=== PATIENT | male | born 1970 | race Caucasian/White ===

== ENCOUNTER 2020-10-23 08:33 | Outpatient (REF) | payer OTHER, SELFPAY ==
[2020-10-23 10:00] LABS: Alanine Aminotransferase 21 U/L (0-40); Anion Gap 14 (12-20); Blood Urea Nitrogen 19 mg/dL (9-16); Carbon Dioxide 24 mmol/L (22-29); Chloride 108 mmol/L (96-108); Cholesterol 179 mg/dL; Estimated Glomerular Filt Rate > 60; HDL Cholesterol 34 mg/dL; LDL Cholesterol Calculated 128 mg/dl; Potassium 4.6 mmol/L (3.3-5.1); Sodium 141 mmol/L (135-145); Triglycerides 86 mg/dL
== END 2020-10-23 08:34 | disposition home or self-care (01) ==
LOC: HO.LAB 08:33
PROVIDERS: PCP Family Medicine; Visit Provider Family Medicine
DX: E78.00 Pure hypercholesterolemia, unspecified (principal); I10 Essential (primary) hypertension; Z79.899 Other long term (current) drug therapy
CPT/HCPCS: 36415; 80051; 80061; 82550; 82565; 84460; 84520

== ENCOUNTER → 2020-12-16 15:26 | Outpatient (BNVA) | payer OTHER, SELFPAY | PROVIDERS: PCP Family Medicine; Visit Provider Surgery ==

== ENCOUNTER 2021-01-05 06:02 | Day surgery (SDC) | payer OTHER, SELFPAY ==
[2020-12-30 11:39] VITALS: BMI 31.1
--- NOTE | 2021-01-04 08:34 | P.CONAN_ITS ---
Documented by User: Sharno Syeda 01/04/21 08:34 HPI - Anesthesia Eval Consult details Narrative: 50yo M for Excision of Back Lipoma PMFSH Active Problems Active Problems: All Active Problems (Updated 12/30/20 @ 11:36 by Deepti Renteria) Lipoma of back (Acute) Past Medical History Medical History GERD (gastroesophageal reflux disease) High cholesterol Lipoma of back Surgical History Surgical History History of back surgery Social History Social History Are you a primary post acute care nurse to a significant other at home: No Do you presently have visiting nurse or other home services: No Alcohol intake: former Patient Tobacco Use Status: Current someday Tobacco user Tobacco use type: Cigarette Years Smoked: 25 Smoked in Last 30 Days: Yes Patient Given Instructions on How to Stop Smoking: Yes Date Education Initiated: 12/30/20 Second Hand Smoke Exposure: Yes () Use of substances other than those prescribed or required for medical reasons: Yes Substance Use Frequency: Daily Have you been hit, kicked, punched, or otherwise hurt by someone within the past year? If so, by whom?: No Are you DNR?: No Advance Directives: No Advance Directives Information Provided: No Advance Directives on File: No Recently lost weight without trying: No Eating poorly because of decreased appetite: No Nutrition Risks: No Nutritional Risk Meds Allergies Allergy/AdvReac Type Severity Reaction Status Date / Time No Known Allergies Allergy Unverified 12/30/20 11:36 [No Known Allergies*] Home Medications Medication Instructions Recorded Confirmed Last Taken Type atorvastatin 20 mg tablet 20 mg PO BEDTIME 12/16/20 12/30/20 Unknown History multivitamin 1 tab PO DAILY 12/16/20 12/30/20 Unknown History cyclobenzaprine 5 mg PO BEDTIME PRN 12/30/20 12/30/20 Unknown History flaxseed oil 1,000 mg PO DAILY 12/30/20 12/30/20 Unknown History lysine [L-Lysine] 1,000 mg PO DAILY 12/30/20 12/30/20 Unknown History omeprazole 20 mg PO DAILY 12/30/20 12/30/20 Unknown History Exam Exam Date and Time: January 04, 2021 0834 Height,Weight and Vital Signs: Height 6 ft Weight 104.326 kg Assessment and Plan Assessment Anesthesia Assessment: Chart Reviewed Documented by User: Susana Magaña 01/05/21 08:00 [facility] Past Medical History Medical History GERD (gastroesophageal reflux disease) High cholesterol Lipoma of back Surgical History Surgical History History of back surgery Social History Social History Are you a primary post acute care nurse to a significant other at home: No Do you presently have visiting nurse or other home services: No Alcohol intake: former Patient Tobacco Use Status: Current someday Tobacco user Tobacco use type: Cigarette Years Smoked: 25 Smoked in Last 30 Days: Yes Patient Given Instructions on How to Stop Smoking: Yes Date Education Initiated: 12/30/20 Second Hand Smoke Exposure: Yes () Use of substances other than those prescribed or required for medical reasons: Yes Substance Use Frequency: Daily Have you been hit, kicked, punched, or otherwise hurt by someone within the past year? If so, by whom?: No Are you DNR?: No Advance Directives: No Advance Directives Information Provided: No Advance Directives on File: No Recently lost weight without trying: No Eating poorly because of decreased appetite: No Nutrition Risks: No Nutritional Risk Meds Allergies Allergy/AdvReac Type Severity Reaction Status Date / Time No Known Allergies Allergy Unverified 12/30/20 11:36 [No Known Allergies*] Home Medications Medication Instructions Recorded Confirmed Last Taken Type atorvastatin 20 mg tablet 20 mg PO BEDTIME 12/16/20 12/30/20 Unknown History multivitamin 1 tab PO DAILY 12/16/20 12/30/20 Unknown History cyclobenzaprine 5 mg PO BEDTIME PRN 12/30/20 12/30/20 Unknown History flaxseed oil 1,000 mg PO DAILY 12/30/20 12/30/20 Unknown History lysine [L-Lysine] 1,000 mg PO DAILY 12/30/20 12/30/20 Unknown History omeprazole 20 mg PO DAILY 12/30/20 12/30/20 Unknown History Exam Airway Mallampati Class: II TM Dist: >3cm Neck ROM: Full Assessment and Plan Assessment Anesthesia Assessment: Anesthesia Plan Discussed and Chart Reviewed Final Anesthetic Review NPO: Yes ASA Class: II Final Preanesthetic Review: No Changes in Pt Med Stat, Meds/Allgs Chart Reviewed and Consent Obtained/Reviewed Patient Risk: Low Procedure Risk: Low Assessment/Block/Sedation in SS: Assess/Block/Sedation-SS Anesthetic Plan Anesthetic Plan: MAC: Disposition: Standard PACU
[2021-01-05 06:16] VITALS: BP 134/78; PULSE 55; RESP 16; TEMP 36.7; O2SAT 99
[2021-01-05] MEDS: Lactated Ringers 1,000 ML 100 ML IVCONT (06:38)
--- NOTE | 2021-01-05 08:18 | P.OP_ITS ---
Operative Note Operative Note Date of Service: 01/05/21 Narrative: Preop diagnosis: large lipoma, back Postop diagnosis: the same Procedure: excision of larger lipoma, back Surgeon: Justin Del Castillo MD no asst The patient is a 50-year-old male with a large lipoma on the back measuring a bout 8 cm dimension. He wanted this excised. He understood the technique of excision under monitored anesthesia care. He was aware of the risks, benefits, and alternatives. He was brought to the operating room and placed in prone position under monitored anesthesia care. The lipomatous mass was noted on the back to the right of the midline. The area was prepped and draped. Lidocaine 1% was used for local anesthesia as well. I made a transverse incision on the skin overlying the lipoma using blade 15. This was carried down to the full-thickness of the skin and subcutaneous fat with electrocautery. We continued to dissect through the subcutaneous fat until I was able to visualize lipomatous tissue. We sharply dissected this off of the subcutaneous layer using of scissors. How ever, there were very poor planes because of fibrous adhesions surrounding the circumference of the lipoma. We had to dissect slowly with retraction of the subcutaneous layer for traction and counter traction to allow as to carefully separate the tissue from rest of the subcutaneous layer. I was able to identify the posterior margins and I carefully the lipoma from the fascia along this plane. This was done using electrocautery. I continued to dissect circumferentially to separate the subcutaneous layer from the lipomatous tissue with electrocautery until I was able to completely separate the lipoma and this was delivered off the field. I observed for hemostasis. I cauterized oozing areas. Once hemostasis was ensured I proceeded to reappose the deep subcutaneous layer with Dexon 3-0 interrupted sutures. Skin closure was achieved with Dexon 4-0 subcuticular running sutures. I infiltrated the area with Marcaine 0.5% for postop analgesia. Steri-Strips and dressings were applied and the procedure was completed. The patient tolerated procedure well. There were no complications noted. Initial and final counts of sponges instruments were correct. Estimated blood loss was about 30 cc. The patient was then transferred to the recovery room with stable vital signs.
[2021-01-05 08:23] VITALS: BP 135/76; PULSE 63; RESP 16; TEMP 36.2; O2SAT 99
--- NOTE | 2021-01-05 08:27 | P.BOP_ITS ---
Brief Operative Note Date of Service: 01/05/21 Pre-op diagnosis: Lipoma, back Post-op diagnosis: same Procedure: Excision of large Lipoma, back Surgeon: Justin Del Castillo MD Anesthesia: MAC Was an Railroad Signal Technician used for this Procedure?: No Estimated blood loss (mL): 30 Pathology: other (Lipoma) Condition: stable Disposition: PACU
--- NOTE | 2021-01-05 08:32 | MHC.SHP ---
Pre-Procedural Eval Section B Chief Complaint: benign lipomatous neoplasm of skin Allergies: Allergies Allergy/AdvReac Type Severity Reaction Status Date / Time No Known Allergies Allergy Unverified 12/30/20 11:36 [No Known Allergies*] Plan I have reviewed the history and physical and performed a pertinent physical examination on my patient. No changes have occurred unless specified.
[2021-01-05 08:38] VITALS: BP 129/74; PULSE 54; RESP 17; TEMP 36.2; O2SAT 100
== END 2021-01-05 09:05 | disposition home or self-care (01) ==
PROVIDERS: PCP Family Medicine; Visit Provider Surgery
PROC: (CPT 21931; principal; 2021-01-05 07:30)
DX: D17.1 Benign lipomatous neoplasm of skin and subcutaneous tissue of trunk (principal); F17.210 Nicotine dependence, cigarettes, uncomplicated; Z79.899 Other long term (current) drug therapy
CPT/HCPCS: 21931; 88304; J0690; J2250; J2405; J3010

== ENCOUNTER 2021-01-08 07:16 | Outpatient (REF) | payer OTHER, SELFPAY ==
--- NOTE | ~2021-01-08 | XR_ITS ---
EXAMINATION: XR SHOULDER, RIGHT CLINICAL INFORMATION: Pain. COMPARISON: 05/09/2018 TECHNIQUE: Three views of the right shoulder. FINDINGS: There is no evidence of acute fracture or dislocation of the right shoulder. There is calcific tendinitis present. There is mild spurring inferior aspect of the glenohumeral joint. There is degenerative change of the right acromioclavicular joint with joint space narrowing, marginal spurring, and subchondral cyst formation which is progression since study of 05/09/2018. XR/XR shoulder RT min 2V IMPRESSION: Calcific tendinitis of the right shoulder. Progression in degenerative change of the right acromioclavicular joint.
== END 2021-01-08 07:17 | disposition home or self-care (01) ==
LOC: HO.HOSX 07:16
PROVIDERS: Visit Provider Physician Assistant
DX: M75.41 Impingement syndrome of right shoulder (principal); M25.511 Pain in right shoulder
CPT/HCPCS: 20610; 73030; J1040

== ENCOUNTER → 2021-01-14 13:42 | Outpatient (BNVA) | payer OTHER, SELFPAY | PROVIDERS: Visit Provider Orthopaedic Surgery | DX: M23.91 Unspecified internal derangement of right knee (principal) | CPT/HCPCS: 20610; J1100 ==

== ENCOUNTER → 2021-02-03 15:18 | Outpatient (BNVA) | payer OTHER, SELFPAY | PROVIDERS: PCP Family Medicine; Visit Provider Surgery ==

== ENCOUNTER 2021-11-12 07:24 | Outpatient (REF) | payer OTHER, SELFPAY ==
[2021-11-12 08:38] LABS: Alanine Aminotransferase 23 U/L (0-40); Aspartate Amino Transferase 25 U/L (5-37); Cholesterol 251 mg/dL; HDL Cholesterol 42 mg/dL; LDL Cholesterol Calculated 194 mg/dl; Triglycerides 79 mg/dL
== END 2021-11-12 07:25 | disposition home or self-care (01) ==
LOC: HO.LAB 07:24
PROVIDERS: PCP Family Medicine; Visit Provider Family Medicine
DX: E78.00 Pure hypercholesterolemia, unspecified (principal); Z79.899 Other long term (current) drug therapy
CPT/HCPCS: 36415; 80061; 84450; 84460